=== PATIENT | male | born 1995 | race Two or more races ===

== ENCOUNTER 2017-08-27 12:13 | Emergency (ER) | payer SELFPAY ==
[~2017-08-27] VITALS: Ht 170.2 cm; Wt 65.8 kg
[2017-08-27 12:13] VITALS: BP 134/88
--- NOTE | 2017-08-27 12:13 | NUR ---
PT AMBULATORY TO ER BED 11. C/O RUQ ABDOMINAL PAIN W/ N/V/D, SYMPTOMS STARTED YESTERDAY. DENIES FFEVER. STABLE VITALS. AWAITING MD MORALES.
--- NOTE | 2017-08-27 13:52 | NUR ---
PT NOT AT BEDSIDE. LEFT W/OUT BEING SEEN BY MD.
== END 2017-08-27 13:57 | disposition left against medical advice (07) ==
LOC: ER 12:15
DX: Z53.21 Procedure and treatment not carried out due to patient leaving prior to being seen by health care provider (principal)
CPT/HCPCS: A4606; Z7610